=== PATIENT | female | born 2000 | race Caucasian/White ===

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

== ENCOUNTER 2022-01-01 07:52 | Emergency (ER) | payer OTHER ==
[~2022-01-01] VITALS: Ht 160 cm; Wt 72.5 kg
[~2022-01-01 07:52] MED LIST changes: +NITR100C PO
--- NOTE | 2022-01-01 08:46 | ED General ---
General Chief Complaint: Fever-Adult/Adol Stated Complaint: CHILLS- SORE THROAT - COUGH - CONGESTION Nursing Triage Note: CHILLS AND BODY ACHES STARTING YESTERDAY. Source of Information: Patient Exam Limitations: No Limitations (TIM OSEI STUDENT) History of Present Illness Date Seen by Provider: Jan 01, 2022 Time Seen by Provider: 08:00 Initial Comments This is an otherwise healthy 21 YO female presenting to the ER with chills, body aches, dry cough, headache, and nausea since last night. States she took Ibuprofen, Dayquil, and Nyquil without improvement. Also took Excedrin for her headache which provided temporary improvement. Has been flu and COVID vaccinated, but has not had a COVID booster. No known sick contacts. Was seen in the ER 3 days ago for test. UA at that time showed UTI and pt was Rx'd Nitrofurantoin, which she has been taking as prescribed. Denies any urinary symptoms at this time. Associated Systoms: Cough, Headaches, Nausea/Vomiting (TIM OSEI STUDENT) Allergies and Home Medications Allergies Coded Allergies: No Known Drug Allergies (Unverified , 08/23/21) Patient Home Medication List Home Medication List Reviewed: Yes (ANTONIO HOROWITZ MD) Dicyclomine HCl (Dicyclomine HCl) 20 Mg Tablet, 20 MG PO BID Prescribed by: JONAS MEANS on 08/23/21 0451 Nitrofurantoin Macrocrystal (Nitrofurantoin) 100 Mg Capsule, 100 MG PO BID Prescribed by: WIL JAMES on 12/29/21 223 Ondansetron (Ondansetron Odt) 4 Mg Tab.rapdis, 4 MG SL Q4H PRN for NAUSEA/VOMITING Prescribed by: ANTONIO GARCIA on 01/01/22 1007 Oseltamivir Phosphate (Tamiflu) 75 Mg Cap, 75 MG PO BID Prescribed by: ANTONIO GARCIA on 01/01/22 1007 Review of Systems Review of Systems Constitutional: see HPI, chills, fever EENTM: No blurred vision, No double vision Respiratory: cough; No short of breath Cardiovascular: No palpitations, No syncope Gastrointestinal: No abdominal pain; nausea, vomiting Genitourinary: No discharge, No dysuria Musculoskeletal: muscle pain; No muscle weakness Skin: no symptoms reported Psychiatric/Neurological: Headache; Denies Numbness Hematologic/Lymphatic: No Symptoms Reported Immunological/Allergic: no symptoms reported (TIM OSEI STUDENT) All Other Systems Reviewed Negative Unless Noted: Yes (Negative excepted noted.) (TIM OSEI STUDENT) Past Vxjblcv-Llkyty-Iudxnk Hx Patient Social History Tobacco Use?: No Substance use?: No Alcohol Use?: No (TIM OSEI) Immunizations Up To Date First/Initial COVID19 Vaccinat: FEBRUARY 2021 Second COVID19 Vaccination Britton: 05/18 COVID19 Vaccine [employer] 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 oz. kg; 28.00 BMI Method: General Appearance: No Apparent Distress, WD/WN Eyes: Bilateral Eye Normal Inspection, Bilateral Eye PERRL, Bilateral Eye EOMI HEENT: PERRL/EOMI, Other (mildly dry mucous membranes; no pharyngeal erythema or exudates; tonsils surgically absent; uvula midline) Neck: Full Range of Motion, Normal Inspection Respiratory: Lungs Clear, Normal Breath Sounds, No Accessory Muscle Use, No Respiratory Distress, Other (mild anterior chest wall tenderness) Cardiovascular: No Edema, No Murmur, Tachycardia Gastrointestinal: Non Tender, Soft; No Distended Extremity: Normal Inspection, Normal Range of Motion, No Calf Tenderness Neurologic/Psychiatric: Alert, Oriented x3, No Motor/Sensory Deficits, Normal Mood/Affect Skin: Normal Color, Warm/Dry Lymphatic: Other (no anterior cervical lymphadenopathy) (TIM OSEI STUDENT) Progress/Results/Core Measures Suspected Sepsis SIRS Temperature: Pulse: 110 Respiratory Rate: 16 Blood Pressure 135 /68 Mean: 90 (TIM OSEI STUDENT) Results/Orders Lab Results Laboratory Tests Test 01/01/22 08:00 01/01/22 08:17 Range/Units Influenza Type A (RT-PCR) Detected H Not Detecte Influenza Type B (RT-PCR) Not Detected Not Detecte SARS-CoV-2 RNA (RT-PCR) Not Detected Not Detecte Group A Streptococcus Screen NEGATIVE NEGATIVE (ANTONIO HOROWITZ MD) Micro Results Microbiology 01/01/22 Throat Culture - Preliminary, Resulted No Beta Strep isolated (ANTONIO HOROWITZ MD) My Orders Orders - ANTONIO HOROWITZ MD Rapid Strep A Screen (01/01/22 07:54) Covid 19 Inhouse Test (01/01/22 07:54) Influenza A And B By Pcr (01/01/22 07:54) Ibuprofen Tablet (Motrin Tablet) (01/01/22 09:00) Ondansetron Oral Dissolve Tab (Zofran (01/01/22 09:00) (ANTONIO HOROWITZ MD) Medications Given in ED (ANTONIO HOROWITZ MD) Vital Signs/I&O 01/01/22 01/01/22 07:55 10:20 Temp 39.0 36.7 Pulse 110 103 Resp 16 16 B/P (MAP) 135/68 (90) 129/65 Pulse Ox 100 98 O2 Delivery Room Air Room Air (ANTONIO HOROWITZ MD) Vital Signs/I&O Capillary Refill : Less Than 3 Seconds (TIM OSEI MED STUDENT) Blood Pressure Mean: 90 Progress Note : Progress Note Patient tested positive for influenza A. She received Zofran and ibuprofen in the ER. She was able to drink well after treatment. Urine culture from prior visit was reviewed and no specific pathogen was identified. Since symptoms have only been present for 2 days, she was offered Tamiflu which she accepted. Prescription was sent. See discharge instructions for further discussion. (ANTONIO HOROWITZ MD) Departure Impression Primary Impression: Influenza A Additional Impression: Nausea & vomiting Qualified Codes: R11.2 - Nausea with vomiting, unspecified Disposition: 01 HOME, SELF-CARE Condition: Improved Departure-Patient Inst. Decision time for Depature: 10:02 (ANTONIO HOROWITZ MD) Referrals: NO,LOCAL PHYSICIAN (PCP/Family) Primary Care Physician Patient Instructions: Flu, Adult ED Add. Discharge Instructions: Drink plenty of clear liquids to stay well-hydrated. Gradually advance your diet with small quantities of bland food as tolerated. Start the Tamiflu as soon as possible and complete the entire 10 doses. Take a dose as soon as you pick it up and then repeat again before bed tonight. Take Zofran (ondansetron) as prescribed for nausea or vomiting. You may take Tylenol (acetaminophen) up to 1000 mg every 6 hours as needed and/or ibuprofen up to 600 mg every 6 hours as needed for pain or fever. Call with questions or concerns. Return to care if you have worsening symptoms despite following these instructions. All discharge instructions reviewed with patient and/or family. Voiced understanding. Scripts Ondansetron (Ondansetron Odt) 4 Mg Tab.rapdis 4 MG SL Q4H PRN for NAUSEA/VOMITING, #10 TAB Prov: ANTONIO HOROWITZ MD 01/01/22 Oseltamivir Phosphate (Tamiflu) 75 Mg Cap 75 MG PO BID, #10 CAP Prov: ANTONIO HOROWITZ MD 01/01/22 Work/School Note: School/Childcare Release Date Seen in the Emergency Department: Jan 01, 2022 Time Dismissed from Emergency Department: 10:20 Return to School: Jan 03, 2022 Restrictions: Return-No Fever (24hrs), Return-No Vomiting(24hrs) Medical Student Attestation and Attending Note: I have personally interviewed and examined this patient along with Tim Osei, MS 4. I have reviewed student documentation including history, physical, and assessments. I agree with the documentation except where otherwise noted. Exam: General: Alert, oriented, no acute distress, well developed HEENT: Normocephalic and atraumatic Heart: Tachycardia with regular rhythm without murmur Lungs: Clear to auscultation bilaterally with normal effort Neuropsych: Alert, oriented, no focal deficits Skin: Warm and dry without rashes (ANTONIO HOROWITZ MD) TIM OSEI MED STUDENT Jan 01, 2022 08:46 ANTONIO HOROWITZ MD Jan 01, 2022 10:06
[2022-01-01] MEDS ORDERED: IBUPROFEN TABLET 200 MG TAB PO ONE (09:00)
[2022-01-01] MEDS ORDERED: ONDANSETRON 4 MG (ZOFRAN) ORAL DISSOLVE TAB SL ONE (09:00)
[2022-01-01] MEDS ORDERED: ONDA4TAB11 SL (10:07)
[2022-01-01] MEDS ORDERED: OSLT75C PO (10:07)
[2022-01-01 10:20] VITALS: BP 129/65
== END 2022-01-01 10:19 | disposition home or self-care (01) ==
LOC: EDUNIT# 07:52 → ER 07:53
DX: J10.1 Influenza due to other identified influenza virus with other respiratory manifestations (principal); R11.2 Nausea with vomiting, unspecified; Z20.822 Contact with and (suspected) exposure to COVID-19
CPT/HCPCS: 87430; 87636; 99283

== ENCOUNTER 2022-01-15 22:44 | Emergency (ER) | payer OTHER ==
[~2022-01-15] VITALS: Ht 160 cm; Wt 72.5 kg
[~2022-01-15 22:44] MED LIST changes: +ONDA4TAB11 SL; +OSLT75C PO
[2022-01-15 22:55] VITALS: BP 138/88
--- NOTE | 2022-01-15 23:23 | ED Lower Extremity ---
General Chief Complaint: Lower Extremity Stated Complaint: R FOOT PAIN Nursing Triage Note: Pt arrives per POV w/ friend c/o right foot pain x 1.5-2 weeks. Denies injury to foot. Source: patient History of Present Illness Date Seen by Provider: Jan 15, 2022 Time Seen by Provider: 23:10 Initial Comments PT ARRIVES VIA POV C/O PAIN TO TOP OF RIGHT FOOT FOR 1 1/2 WEEKS NO SWELLING OR BRUISING NO PARESTHESIAS OR MOTOR DEFICITS NO INJURY NO NEW SHOES NO UNUSUAL ACTIVITY NO HISTORY OF [place] HAS NOT TAKEN ANYTHING FOR PAIN SYMPTOMS NO DIFFERENT TODAY HAS NOT SOUGHT CARE UNTIL TONIGHT. LMP--END OF OCTOBER, NORMAL. NO CONTROL. PT DENIES ANY SEXUAL ACTIVITY OR POSSIBILITY OF . 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 [place] Allergies and Home Medications Allergies Coded Allergies: No Known Drug Allergies (Unverified , 08/23/21) Patient Home Medication List Home Medication List Reviewed: Yes Dicyclomine HCl (Dicyclomine HCl) 20 Mg Tablet, 20 MG PO BID Prescribed by: JONAS MEANS on 08/23/21 0451 Nitrofurantoin Macrocrystal (Nitrofurantoin) 100 Mg Capsule, 100 MG PO BID Prescribed by: WIL JAMES on 12/29/21 2236 Ondansetron (Ondansetron Odt) 4 Mg Tab.rapdis, 4 MG SL Q4H PRN for NA USEA/VOMITING Prescribed by: ANTONIO GARCIA on 01/01/22 1007 Oseltamivir Phosphate (Tamiflu) 75 Mg Cap, 75 MG PO BID Prescribed by: ANTONIO GARCIA on 01/01/22 1007 Review of Systems Constitutional: no symptoms reported LMP: Nov 27, 2021 Control/STD Prophylaxis: None Musculoskeletal: see HPI Skin: no symptoms reported Psychiatric/Neurological: No Symptoms Reported Past Blgxgxb-Wthsbb-Xjdqqp Hx Patient Social History Tobacco Use?: No Use of E-Cig and/or Vaping dev: No Alcohol Use?: Yes Alcohol type: Wine Alcohol Frequency: Couple times a week Immunizations Up To Date First/Initial COVID19 Vaccinat: 03/18 Second COVID19 Vaccination Britton: 05/18 Past Medical History Surgeries: Yes Tonsillectomy Respiratory: No Cardiac: No Neurological: No Reproductive Disorders: Yes Female Reproductive Disorders: Ovarian Cyst, Polycystic Ovarian Dis Genitourinary: No Gastrointestinal: No Musculoskeletal: No HEENT: Yes (S/P TONSILLECTOMY) Tonsilitis Cancer: No Psychosocial: No Integumentary: No Blood Disorders: No Physical Exam Vital Signs Vital Signs - First Documented 01/15/22 22:55 Temp 36.5 Pulse 70 Resp 16 B/P (MAP) 138/88 (105) Pulse Ox 100 Capillary Refill : Less Than 3 Seconds Height, Weight, BMI Height: '" Weight: lbs. oz. kg; 28.00 BMI Method: General Appearance: WD/WN, no apparent distress, other (WALKS WITHOUT DIFFICULTY. DOES NOT APPEAR TO BE IN ANY DISCOMFORT OR DISTRESS) Ankles: right ankle non-tender, right ankle normal inspection, right ankle normal range of motion, right ankle no evidence of injury Feet: right foot normal range of motion, right foot no evidence of injury, right foot other (MILD TENDERNESS TO MID DORSAL ASPECT OF RIGHT FOOT. NO SWELLING OR BRUISING OR EVIDENCE OF TRAUMA. NORMAL ROM. SENSORY/VASCULAR INTACT. BEARS WEIGHT AND WALKS WITHOUT DIFFICULTY. ) Neurologic/Tendon: normal sensation, normal motor functions, normal tendon functions Neurologic/Psychiatric: wares sorter II-XII nml as tested, no motor/sensory deficits, alert, normal mood/affect, oriented x 3 Skin: normal color, warm/dry Procedures/Interventions Splinting and Joint Reduction : Splints: Post Op Shoe Progress/Results/Core Measures Results/Orders My Orders Orders - ABDI CURIEL DO Foot, Right, 3 View (01/15/22 23:13) Ankle, Right, 3 Views (01/15/22 23:13) Vital Signs/I&O 01/15/22 22:55 Temp 36.5 Pulse 70 Resp 16 B/P (MAP) 138/88 (105) Pulse Ox 100 Blood Pressure Mean: 105 Diagnostic Imaging Comments XRAYS RIGHT FOOT AND ANKLE--NO ACUTE PROCESS, PENDING RADIOLOGIST REVIEW Reviewed: Reviewed by Me Departure Impression Primary Impression: Right foot pain Disposition: 01 HOME, SELF-CARE Condition: Stable Departure-Patient Inst. Decision time for Depature: 23:27 Referrals: PORSCHE LUCAS MD Patient Instructions: Metatarsalgia (DC) Add. Discharge Instructions: WEAR POST OP SHOE AT ALL TIMES FOLLOW UP WITH [employer] [facility] IN 1 WEEK FOR FURTHER CARE All discharge instructions reviewed with patient and/or family. Voiced understanding. Scripts Naproxen (Naproxen) 500 Mg Tablet. 500 MG PO BID, #20 TAB Prov: ABDI CURIEL DO 01/15/22 ABDI CURIEL DO Jan 15, 2022 23:23
[2022-01-15] MEDS ORDERED: RX-NAPROXEN (NAPROSYN) 250 MG TAB PPK#4 PO STA (23:25)
[2022-01-15] MEDS ORDERED: NAPR500T8 PO (23:28)
--- NOTE | 2022-01-16 05:40 | Diagnostic Imaging Report ---
INDICATION: ankle pain COMPARISON: None. FINDINGS: 3 views of the right ankle were obtained. There is no acute fracture or dislocation. No focal osseous lesions are seen. The surrounding soft tissue structures are unremarkable. There are no radiopaque foreign bodies. IMPRESSION: 1. No acute fracture or dislocation in the right ankle. Dictated by: Dictated on workstation # [id number]
--- NOTE | 2022-01-16 05:41 | Diagnostic Imaging Report ---
INDICATION: foot pain COMPARISON: None. FINDINGS: 3 views of the right foot demonstrate no acute fracture or dislocation. There are no focal osseous lesions. There is no soft tissue swelling. Joint spaces are well maintained. Small radiopaque foreign body is seen lateral to the 5th metacarpal head. IMPRESSION: 1. No acute fractures or dislocations of the right foot. 2. Possible soft tissue radiopaque foreign body lateral to the 5th metacarpal head. Dictated by: Dictated on workstation # [id number]
== END 2022-01-15 23:54 | disposition home or self-care (01) ==
LOC: EDUNIT# 22:44 → ER 22:45
DX: M79.671 Pain in right foot (principal)
CPT/HCPCS: 73610; 73630

== ENCOUNTER → 2022-10-12 | Outpatient (CLI) | payer OTHER ==
[~2022-10-12] MED LIST changes: +NAPR500T8 PO
--- NOTE | 2022-10-12 18:28 | Diagnostic Imaging Report ---
INDICATION: Foot pain COMPARISON: None. FINDINGS: Multiple radiographic views of the left foot demonstrate no acute fracture or dislocation. There are no focal osseous lesions. There is no soft tissue swelling. Joint spaces are well maintained. No radiopaque foreign bodies are seen. IMPRESSION: No acute fractures or dislocations of the left foot. Dictated by: Dictated on workstation # [id number]
== END ==
LOC: RAD 18:00
PROVIDERS: ATTEND Nurse Practitioner Community Health
DX: M79.672 Pain in left foot (principal)
CPT/HCPCS: 73630

== ENCOUNTER 2022-12-03 14:26 | Emergency (ER) | payer OTHER ==
[~2022-12-03] VITALS: Ht 160 cm; Wt 88.4 kg
[2022-12-03] MEDS ORDERED: METH4TAB11 PO (15:13)
--- NOTE | 2022-12-03 15:13 | ED Neurological Problem ---
General Chief Complaint: Neurological Problems Stated Complaint: RIGHT HAND NUMB Nursing Triage Note: PT AMB TO [facility] 10 WITH CC OF R ARM NUMBNESS X 3 WEEKS. 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 Source: patient Exam Limitations: no limitations History of Present Illness Date Seen by Provider: Dec 03, 2022 Time Seen by Provider: 15:01 Initial Comments 22-year-old female presents to the ED with complaints of right arm and hand numbness intermittently over the last couple of weeks. Allergies and Home Medications Allergies Coded Allergies: No Known Drug Allergies (Unverified , 08/23/21) Patient Home Medication List Dicyclomine HCl (Dicyclomine HCl) 20 Mg Tablet, 20 MG PO BID Prescribed by: JONAS MEANS on 08/23/21 0451 Naproxen (Naproxen) 500 Mg Tablet.dr, 500 MG PO BID Prescribed by: ABDI CURIEL on 01/15/22 2328 Nitrofurantoin Macrocrystal (Nitrofurantoin) 100 Mg Capsule, 100 MG PO BID Prescribed by: WIL JAMES on 12/29/21 2236 Ondansetron (Ondansetron Odt) 4 Mg Tab.rapdis, 4 MG SL Q4H PRN for NAUSEA/VOMITING Prescribed by: ANTONIO GARCIA on 01/01/22 1007 Oseltamivir Phosphate (Tamiflu) 75 Mg Cap, 75 MG PO BID Prescribed by: ANTONIO GARCIA on 01/01/22 1007 Past Yutddcn-Sxhrvu-Fkxtcp Hx Immunizations Up To Date First/Initial COVID19 Vaccinat: 03/18 Second COVID19 Vaccination Britton: 05/18 Past Medical History Surgeries: Yes Tonsillectomy Respiratory: No Cardiac: No Neurological: No Reproductive Disorders: Yes Female Reproductive Disorders: Ovarian Cyst, Polycystic Ovarian Dis Genitourinary: No Gastrointestinal: No Musculoskeletal: No HEENT: Yes (S/P TONSILLECTOMY) Tonsilitis Cancer: No Psychosocial: No Integumentary: No Blood Disorders: No Physical Exam Vital Signs Vital Signs - First Documented 12/03/22 14:39 Temp 36.4 Pulse 88 Resp 18 B/P (MAP) 134/78 (96) Pulse Ox 100 O2 Delivery Room Air Capillary Refill : Less Than 3 Seconds Height, Weight, BMI Height: '" Weight: lbs. oz. kg; 34.00 BMI Method: Progress/Results/Core Measures Results/Orders Vital Signs/I&O 12/03/22 14:39 Temp 36.4 Pulse 88 Resp 18 B/P (MAP) 134/78 (96) Pulse Ox 100 O2 Delivery Room Air Blood Pressure Mean: 96 Progress Progress Note : Time: 15:07 Progress Note Patient seen and evaluated, resting comfortably in bed, no acute distress. Numbness in hand and arm likely related to ulnar nerve compression. Will discharge with a steroid Dosepak. Departure Impression Primary Impression: Ulnar nerve compression Disposition: HOME, SELF-CARE Condition: Stable Departure-Patient Inst. Decision time for Depature: 15:10 Referrals: [facility] (PCP/Family) Primary Care Physician Patient Instructions: Cubital Tunnel Syndrome (DC) Add. Discharge Instructions: Take the Medrol Dosepak as prescribed. You may take Tylenol and ibuprofen as needed for pain. Follow-up with your primary care provider, you may need an MRI or nerve conduction studies. Wear the brace as needed for comfort. Return if you have worsening pain, numbness that does not go away, change in color of your fingers, or inability to use your hand, or any other new, concerning, worsening symptoms. All discharge instructions reviewed with patient and/or family. Voiced understanding. Scripts Methylprednisolone (Methylprednisolone Dose Pack) 4 Mg Tablet 4 MG PO UD for 6 Days, #21 TAB 0 Refills FOLLOW DOSE PACK INSTRUCTIONS Prov: KIRILL BUSTAMANTE APRN 12/03/22 KIRILL BUSTAMANTE APRN Dec 03, 2022 15:12
[2022-12-03 15:30] VITALS: BP 115/51
== END 2022-12-03 15:30 | disposition home or self-care (01) ==
LOC: EDUNIT# 14:26 → ER 14:27
DX: G56.21 Lesion of ulnar nerve, right upper limb (principal)
CPT/HCPCS: 99281